=== PATIENT | male | born 1965 | race Caucasian/White ===

== ENCOUNTER 2018-07-02 10:14 | Emergency (ER) | payer SELFPAY ==
[~2018-07-02] VITALS: Ht 172.7 cm; Wt 63.5 kg
[2018-07-02] MEDS ORDERED: OLAN20TA3 PO (11:10)
[2018-07-02] MEDS ORDERED: LISI10TA2 PO (11:10)
[2018-07-02] MEDS ORDERED: OLAN10TA3 PO (11:10)
[2018-07-02] MEDS ORDERED: AMLO10TA4 PO (11:10)
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
[2018-07-02 11:18] LABS: BASOPHILS % (AUTO) 0 % (0-10); EOSINOPHILS % (AUTO) 0 % (0-10); HEMATOCRIT 43 % (40-54); LYMPHOCYTES # (AUTO) 1.1 X 10^3 (1.0-4.0); LYMPHOCYTES % (AUTO) 17 % (12-44); MEAN CORPUSCULAR HEMOGLOBIN 31 PG (25-34); MEAN CORPUSCULAR HGB CONC 35 G/DL (32-36); MEAN CORPUSCULAR VOLUME 88 FL (80-99); MEAN PLATELET VOLUME 9.6 FL (7.4-10.4); MONOCYTES # (AUTO) 0.7 X 10^3 (0.0-1.0); MONOCYTES % (AUTO) 10 % (0-12); NEUTROPHILS # (AUTO) 4.9 X 10^3 (1.8-7.8); NEUTROPHILS % (AUTO) 73 % (42-75); PLATELET COUNT 265 10^3/uL (130-400); RED BLOOD COUNT 4.92 10^6/uL (4.35-5.85); RED CELL DISTRIBUTION WIDTH 13.2 % (10.0-14.5); WHITE BLOOD COUNT 6.7 10^3/uL (4.3-11.0)
[2018-07-02 11:25] LABS: BILIRUBIN,URINE NEGATIVE (NEGATIVE); CLARITY,URINE CLEAR; COLOR,URINE YELLOW; GLUCOSE, URINE (UA) NEGATIVE (NEGATIVE); KETONES,URINE NEGATIVE (NEGATIVE); LEUKOCYTE ESTERASE ,URINE 1+ (NEGATIVE); NITRITE,URINE NEGATIVE (NEGATIVE); PH,URINE 7 (5-9); PROTEIN,URINE 1+ (NEGATIVE); UROBILINOGEN,URINE 1 MG/DL (NORMAL)
[2018-07-02 11:39] LABS: ALANINE AMINOTRANSFERASE 12 U/L (0-55); ALBUMIN 3.7 GM/DL (3.2-4.5); ALKALINE PHOSPHATASE 65 U/L (40-136); BILIRUBIN,TOTAL 0.8 MG/DL (0.1-1.0); BUN/CREATININE RATIO 23; CALCIUM 9.2 MG/DL (8.5-10.1); CARBON DIOXIDE 25 MMOL/L (21-32); CHLORIDE 102 MMOL/L (98-107); CREATININE SERUM 0.77 MG/DL (0.60-1.30); GFR ESTIMATED > 60; GLUCOSE 96 MG/DL (70-105); POTASSIUM 4.2 MMOL/L (3.6-5.0); SALICYLATE < 5.0 MG/DL (5.0-20.0); SODIUM 135 MMOL/L (135-145)
[2018-07-02 11:42] LABS: ACETAMINOPHEN < 10 UG/ML (10-30)
[2018-07-02 11:43] LABS: BACTERIA,URINE LARGE /HPF
[2018-07-02 11:51] LABS: CANNABINOID SCREEN, URINE POSITIVE (NEGATIVE)
[2018-07-02 11:52] LABS: COCAINE SCREEN URINE NEGATIVE (NEGATIVE)
[2018-07-02 11:53] LABS: AMPHETAMINE SCREEN, URINE POSITIVE (NEGATIVE); METHADONE STAT NEGATIVE (NEGATIVE); TRICYCLIC ANTIDEPRESSANTS SCRE POSITIVE (NEGATIVE)
[2018-07-02 11:54] LABS: BARBITURATE SCREEN URINE NEGATIVE (NEGATIVE); BENZODIAZEPINES SCREEN URINE NEGATIVE (NEGATIVE); METHAMPHETAMINE SCREEN URINE S NEGATIVE (NEGATIVE); OPIATE SCREEN URINE NEGATIVE (NEGATIVE); OXYCODONE STAT NEGATIVE (NEGATIVE)
[2018-07-02 11:55] LABS: PROPOXYPHENE STAT NEGATIVE (NEGATIVE)
[2018-07-02 15:51] VITALS: BP 115/74
== END 2018-07-02 15:44 | disposition short-term general hospital (02) ==
LOC: ER 10:16
DX: R45.851 Suicidal ideations (principal); F23 Brief psychotic disorder; F15.10 Other stimulant abuse, uncomplicated; F41.9 Anxiety disorder, unspecified; I10 Essential (primary) hypertension
CPT/HCPCS: 36415; 80053; 80306; 80320; 80329; 81000; 84443; 85025; 93005

== ENCOUNTER 2021-02-24 09:08 | Emergency (ER) | payer MEDICARE, MEDICAID ==
[~2021-02-24] VITALS: Ht 177 cm; Wt 68.0 kg
[~2021-02-24 09:08] MED LIST: AMLO10TA4 PO; LISI10TA25 PO; OLAN10TA3 PO; OLAN20TA3 PO
[2021-02-24 10:44] LABS: BASOPHILS % (AUTO) 0 % (0-10); EOSINOPHILS # (AUTO) 0.3 10^3/uL (0.0-0.3); EOSINOPHILS % (AUTO) 4 % (0-10); HEMATOCRIT 40 % (40-54); HEMOGLOBIN 13.2 g/dL (13.3-17.7); LYMPHOCYTES # (AUTO) 1.8 10^3/uL (1.0-4.0); LYMPHOCYTES % (AUTO) 22 % (12-44); MEAN CORPUSCULAR HEMOGLOBIN 30 pg (25-34); MEAN CORPUSCULAR HGB CONC 33 g/dL (32-36); MEAN CORPUSCULAR VOLUME 91 fL (80-99); MEAN PLATELET VOLUME 9.6 fL (9.0-12.2); MONOCYTES # (AUTO) 1.3 10^3/uL (0.0-1.0); MONOCYTES % (AUTO) 16 % (0-12); NEUTROPHILS # (AUTO) 4.5 10^3/uL (1.8-7.8); NEUTROPHILS % (AUTO) 57 % (42-75); PLATELET COUNT 239 10^3/uL (130-400); WHITE BLOOD COUNT 7.9 10^3/uL (4.3-11.0)
[2021-02-24 11:07] LABS: ALANINE AMINOTRANSFERASE 12 U/L (0-55); ALBUMIN 3.8 GM/DL (3.2-4.5); ALKALINE PHOSPHATASE 71 U/L (40-136); BUN/CREATININE RATIO 24; CALCIUM 8.9 MG/DL (8.5-10.1); CARBON DIOXIDE 28 MMOL/L (21-32); CHLORIDE 100 MMOL/L (98-107); CREATININE SERUM 0.86 MG/DL (0.60-1.30); GFR ESTIMATED > 60; GLUCOSE 109 MG/DL (70-105); MAGNESIUM 1.9 MG/DL (1.6-2.4); POTASSIUM 3.3 MMOL/L (3.6-5.0); SODIUM 138 MMOL/L (135-145); TOTAL PROTEIN 6.4 GM/DL (6.4-8.2)
[2021-02-24 11:15] LABS: BILIRUBIN,URINE NEGATIVE (NEGATIVE); CLARITY,URINE CLEAR; COLOR,URINE YELLOW; GLUCOSE, URINE (UA) NEGATIVE (NEGATIVE); KETONES,URINE NEGATIVE (NEGATIVE); LEUKOCYTE ESTERASE ,URINE NEGATIVE (NEGATIVE); NITRITE,URINE NEGATIVE (NEGATIVE); PROTEIN,URINE TRACE (NEGATIVE)
[2021-02-24 11:29] LABS: TSH (THYROID ANALYZER) 1.71 UIU/ML (0.35-4.94)
[2021-02-24 11:30] LABS: AMPHETAMINE SCREEN, URINE POSITIVE (NEGATIVE); BARBITURATE SCREEN URINE NEGATIVE (NEGATIVE); BENZODIAZEPINES SCREEN URINE NEGATIVE (NEGATIVE); CANNABINOID SCREEN, URINE POSITIVE (NEGATIVE); COCAINE SCREEN URINE NEGATIVE (NEGATIVE); METHADONE STAT NEGATIVE (NEGATIVE); METHAMPHETAMINE SCREEN URINE S POSITIVE (NEGATIVE); OPIATE SCREEN URINE NEGATIVE (NEGATIVE); OXYCODONE STAT NEGATIVE (NEGATIVE); PROPOXYPHENE STAT NEGATIVE (NEGATIVE); TRICYCLIC ANTIDEPRESSANTS SCRE NEGATIVE (NEGATIVE)
[2021-02-24 11:32] LABS: BACTERIA,URINE TRACE /HPF; SQUAMOUS EPITHELIAL CELL,UR RARE /HPF; WBC,URINE RARE /HPF
[2021-02-24] MEDS ORDERED: KETOROLAC 30 MG/ML VIAL IVP ONE (12:00)
--- NOTE | 2021-02-24 12:38 | ED Psychosocial ---
General Chief Complaint: Psych/Social Disorder Stated Complaint: PSYCH EVAL Nursing Triage Note: ARRIVED TO ER [facility]. STATES HE IS HERE BECAUSE HE HAS NOWHERE TO GO AND WANTS OUT OF [place]. ALSO WANTS US TO HELP HIM INTO A DETENTION AND WAS TOLD BY A DR TO COME BACK HERE IF HE NEEDED HELP WITH THAT. Source: patient, old records Exam Limitations: no limitations History of Present Illness Date Seen by Provider: Feb 24, 2021 Time Seen by Provider: 10:27 Initial Comments This 56-year-old gentleman presents to the emergency room by private conveyance stating he would like to get out of his drug infested residence in the [facility] and into a fci or some other type of facility. He is a client of the [facility] and sees a provider named Nadia Nguyen. He also sees Dr. Soto in [place]. Last night he walked as far as [place] and then laid down on a concrete slab beneath the tree. Someone brought him food and gave him a ride to [place]. His only physical complaints are some generalized soreness from lying on a hard surface and left foot pain from walking a great distance. He reports having a comp field case manager named through the [facility]. He does have a documented history of substance abuse and schizophrenia. During his last ER visit here he was transferred to a psychiatric facility. He requests Toradol for his pain. Allergies and Home Medications Allergies Coded Allergies: baclofen (Verified Allergy, Unknown, 02/24/21) Patient Home Medication List Home Medication List Reviewed: Yes Review of Systems Constitutional: no symptoms reported EENTM: no symptoms reported Respiratory: no symptoms reported Cardiovascular: no symptoms reported Gastrointestinal: no symptoms reported Genitourinary: no symptoms reported Musculoskeletal: see HPI Skin: no symptoms reported Psychiatric/Neurological: See HPI Past Poqfpfm-Gflfcr-Yogwhf Hx Past Med/Social Hx: Reviewed Nursing Past Med/Soc Hx Patient Social History Alcohol Use: Occasionally Uses Number of Drinks Today: AA Alcohol Beverage of Choice: Beer Drug of Choice: METH, POTR Smoking Status: Current Everyday Smoker Recent Infectious Disease Expo: No Recent Hopitalizations: No Seasonal Allergies Seasonal Allergies: No Past Medical History Surgeries: No Respiratory: No Cardiac: Yes Hypertension Neurological: No Genitourinary: No Gastrointestinal: No Musculoskeletal: No Endocrine: No Cancer: No Psychosocial: Yes Schizophrenia Family Medical History No Pertinent Family Hx Physical Exam Vital Signs - First Documented 4/27/21 09:15 Temp 36.4 Pulse 93 Resp 16 B/P (MAP) 136/93 (107) Pulse Ox 97 O2 Delivery Room Air Capillary Refill : Less Than 3 Seconds Height, Weight, BMI Height: 5'8.00" Weight: 140lbs. oz. 63.639124rh; 21.00 BMI Method:Stated General Appearance: WD/WN, no apparent distress, thin HEENT: PERRL/EOMI, normal ENT inspection, other (Mucous membranes moist) Neck: normal inspection Respiratory: lungs clear, normal breath sounds, no respiratory distress Cardiovascular: regular rate, rhythm, no edema, no murmur Gastrointestinal: non tender, soft Extremities: normal inspection, other (Mild generalized tenderness over the distal left foot with no evidence of injury or inflammation on visual inspection) Neurologic/Psychiatric: signal maintainer II-XII nml as tested, no motor/sensory deficits, alert, normal mood/affect, oriented x 3, other (Somnolent but alert and oriented) Skin: normal color, warm/dry Progress/Results/Core Measures Results/Orders Lab Results Laboratory Tests Test 02/24/21 10:38 02/24/21 10:56 Range/Units White Blood Count 7.9 4.3-11.0 10^3/uL Red Blood Count 4.38 4.30-5.52 10^6/uL Hemoglobin 13.2 L 13.3-17.7 g/dL Hematocrit 40 40-54 % Mean Corpuscular Volume 91 80-99 fL Mean Corpuscular Hemoglobin 30 25-34 pg Mean Corpuscular Hemoglobin Concent 33 32-36 g/dL Red Cell Distribution Width 12.5 10.0-14.5 % Platelet Count 239 130-400 10^3/uL Mean Platelet Volume 9.6 9.0-12.2 fL Immature Granulocyte % (Auto) 0 % Neutrophils (%) (Auto) 57 42-75 % Lymphocytes (%) (Auto) 22 12-44 % Monocytes (%) (Auto) 16 H 0-12 % Eosinophils (%) (Auto) 4 0-10 % Basophils (%) (Auto) 0 0-10 % Neutrophils # (Auto) 4.5 1.8-7.8 10^3/uL Lymphocytes # (Auto) 1.8 1.0-4.0 10^3/uL Monocytes # (Auto) 1.3 H 0.0-1.0 10^3/uL Eosinophils # (Auto) 0.3 0.0-0.3 10^3/uL Basophils # (Auto) 0.0 0.0-0.1 10^3/uL Immature Granulocyte # (Auto) 0.0 0.0-0.1 10^3/uL Sodium Level 138 135-145 MMOL/L Potassium Level 3.3 L 3.6-5.0 MMOL/L Chloride Level 100 98-107 MMOL/L Carbon Dioxide Level 28 21-32 MMOL/L Anion Gap 10 5-14 MMOL/L Blood Urea Nitrogen 21 H 7-18 MG/DL Creatinine 0.86 0.60-1.30 MG/DL Estimat Glomerular Filtration Rate > 60 BUN/Creatinine Ratio 24 Glucose Level 109 H 70-105 MG/DL Calcium Level 8.9 8.5-10.1 MG/DL Corrected Calcium 9.1 8.5-10.1 MG/DL Magnesium Level 1.9 1.6-2.4 MG/DL Total Bilirubin 1.0 0.1-1.0 MG/DL Aspartate Amino Transf (AST/SGOT) 25 5-34 U/L Alanine Aminotransferase (ALT/SGPT) 12 0-55 U/L Alkaline Phosphatase 71 40-136 U/L C-Reactive Protein High Sensitivity 0.24 0.00-0.50 MG/DL Total Protein 6.4 6.4-8.2 GM/DL Albumin 3.8 3.2-4.5 GM/DL TSH [facility] Testing 1.71 0.35-4.94 UIU/ML Serum Alcohol < 10 <10 MG/DL Urine Color YELLOW Urine Clarity CLEAR Urine pH 6.0 5-9 Urine Specific [place] 1.025 H 1.016-1.022 Urine Protein TRACE H NEGATIVE Urine Glucose (UA) NEGATIVE NEGATIVE Urine Ketones NEGATIVE NEGATIVE Urine Nitrite NEGATIVE NEGATIVE Urine Bilirubin NEGATIVE NEGATIVE Urine Urobilinogen 4.0 < = 1.0 MG/DL Urine Leukocyte Esterase NEGATIVE NEGATIVE Urine RBC (Auto) NEGATIVE NEGATIVE Urine RBC NONE /HPF Urine WBC RARE /HPF Urine Squamous Epithelial Cells RARE /HPF Urine Crystals NONE /LPF Urine Bacteria TRACE /HPF Urine Casts PRESENT /LPF Urine Hyaline Casts 2-5 H /LPF Urine Mucus SMALL H /LPF Urine Culture Indicated NO Urine Opiates Screen NEGATIVE NEGATIVE Urine Oxycodone Screen NEGATIVE NEGATIVE Urine Methadone Screen NEGATIVE NEGATIVE Urine Propoxyphene Screen NEGATIVE NEGATIVE Urine Barbiturates Screen NEGATIVE NEGATIVE Ur Tricyclic Antidepressants Screen NEGATIVE NEGATIVE Urine Phencyclidine Screen NEGATIVE NEGATIVE Urine Amphetamines Screen POSITIVE H NEGATIVE Urine Methamphetamines Screen POSITIVE H NEGATIVE Urine Benzodiazepines Screen NEGATIVE NEGATIVE Urine Cocaine Screen NEGATIVE NEGATIVE Urine Cannabinoids Screen POSITIVE H NEGATIVE My Orders Orders - DEON SUAREZ MD Alcohol (02/24/21 10:27) Cbc With Automated Diff (02/24/21 10:27) Comprehensive Metabolic Panel (02/24/21 10:27) Hs C Reactive Protein (02/24/21 10:27) Drug Screen Stat (Urine) (02/24/21 10:27) Magnesium (02/24/21 10:27) Thyroid Analyzer (02/24/21 10:27) Ua Culture If Indicated (02/24/21 10:27) Ed Iv/Invasive Line Start (02/24/21 10:27) Ketorolac Injection (Toradol Injection) (02/24/21 12:00) Vital Signs/I&O Blood Pressure Mean: 107 Progress Progress Note #1: Time: 12:37 Progress Note Toradol was ordered for the pain. I have called the [facility] at [place] [facility]imena escoto and left a general voicemail message followed by a voicemail message to 's phone at 12:23. I will hold the patient a short time longer in hopes that I will receive a call back. Progress Note #2: Time: 13:22 Progress Note Never did hear back from the case management office despite leaving 2 messages. Patient is medically stable. Toradol was given for pain. Patient requested some phone numbers for local ministries. I am giving him phone numbers for [facility] through [facility] and [facility] through [facility]. Patient states he no longer wants to live in [place] or receive care there, but I explained to him that he needs to work through his current comp field case manager to address his desired social changes rather than the ER. Departure Impression Primary Impression: Polysubstance abuse Additional Impressions: Unsatisfactory living conditions Generalized pain Disposition: 01 HOME, SELF-CARE Condition: Stable Departure-Patient Inst. Referrals: KALIN SOTO MD (PCP/Family) Primary Care Physician Patient Instructions: Polysubstance Abuse Add. Discharge Instructions: You should follow-up with your comp field case manager through the [facility] as soon as possible. If you are seeking support for substance abuse in the [place] area you may contact [facility] at [facility] in [place] at [phone] or you may try [facility] at [facility] in [place] at [phone]. Drink plenty of clear liquids and eat a well-balanced diet. Avoid methamphetamines, marijuana, and other mind altering illicit substances as they are likely to worsen your mental health and interfere with your psychiatric medications. Call with questions or concerns. Return to the emergency room if you have worsening symptoms. All discharge instructions reviewed with patient and/or family. Voiced understanding. DEON SUAREZ MD Feb 24, 2021 12:38
[2021-02-24 13:59] VITALS: BP 123/78
== END 2021-02-24 13:59 | disposition home or self-care (01) ==
LOC: EDUNIT# 09:08 → ER 09:10
DX: F19.10 Other psychoactive substance abuse, uncomplicated (principal); R52 Pain, unspecified; I10 Essential (primary) hypertension; F17.200 Nicotine dependence, unspecified, uncomplicated; Z59.1 Inadequate housing; Z88.8 Allergy status to other drugs, medicaments and biological substances
CPT/HCPCS: 80053; 80306; 81000; 83735; 84443; 85025; 86141; 99284; G0480; 36415; 80320

== ENCOUNTER 2021-02-25 17:57 | Emergency (ER) | payer MEDICARE, MEDICAID ==
[~2021-02-25] VITALS: Ht 180.3 cm; Wt 65.9 kg
[2021-02-25 18:05] VITALS: BP 117/77
--- NOTE | 2021-02-25 18:41 | ED General ---
General Chief Complaint: General Problems/Pain Stated Complaint: PSYCH EVAL History of Present Illness Date Seen by Provider: Feb 25, 2021 Time Seen by Provider: 18:05 Initial Comments 56 year old male presents for "just don't feel good and I don't have anywhere to stay." He denies thoughts to harm himself or others. He was seen in this ED yesterday, full work up that was benign. He had a bilingual case manager in [facility] [place] but he is not wanting to return there. He was seen in the ED in 2018 and the physician left a good impression on him and giving him referral resources in town. Patient is open to attending [facility] tomorrow at 6:30 pm, he is just looking for a place to sleep until then. Timing/Duration: 12-24 Hours Severity: Mild Associated Systoms: Denies Symptoms Allergies and Home Medications Allergies Coded Allergies: baclofen (Verified Allergy, Unknown, 02/24/21) Patient Home Medication List Home Medication List Reviewed: Yes Review of Systems Review of Systems Constitutional: no symptoms reported, see HPI Psychiatric/Neurological: See HPI, Emotional Problems, Other (chronic meth use. ) All Other Systems Reviewed Negative Unless Noted: Yes Past Toaneyj-Rfpcwt-Zgdiae Hx Past Med/Social Hx: Reviewed Nursing Past Med/Soc Hx Patient Social History Alcohol Beverage of Choice: Beer Drug of Choice: METH, POTR Recent Hopitalizations: No Seasonal Allergies Seasonal Allergies: No Past Medical History Surgeries: No Respiratory: No Cardiac: Yes Hypertension Neurological: No Genitourinary: No Gastrointestinal: No Musculoskeletal: No Endocrine: No Cancer: No Psychosocial: Yes Schizophrenia Family Medical History No Pertinent Family Hx Physical Exam Vital Signs Vital Signs - First Documented 02/25/21 18:05 Temp 36.9 Pulse 87 Resp 18 B/P (MAP) 117/77 (90) Pulse Ox 96 Capillary Refill : Height, Weight, BMI Height: 5'8.00" Weight: 140lbs. oz. 63.037318ci; 21.00 BMI Method:Stated General Appearance: No Apparent Distress, WD/WN, Thin HEENT: PERRL/EOMI, TMs Normal, Normal ENT Inspection, Pharynx Normal Neck: Full Range of Motion, Normal Inspection, Non Tender, Supple Respiratory: Chest Non Tender, Lungs Clear, Normal Breath Sounds Cardiovascular: Regular Rate, Rhythm, No Edema, Normal Peripheral Pulses Gastrointestinal: Normal Bowel Sounds, Non Tender, Soft Extremity: Normal Capillary Refill, Normal Inspection, Normal Range of Motion, No Pedal Edema Neurologic/Psychiatric: Alert, Oriented x3, No Motor/Sensory Deficits, Normal Mood/Affect Skin: Normal Color, Warm/Dry Progress/Results/Core Measures Suspected Sepsis SIRS Temperature: Pulse: Respiratory Rate: Blood Pressure / Mean: Results/Orders Vital Signs/I&O 02/25/21 18:05 Temp 36.9 Pulse 87 Resp 18 B/P (MAP) 117/77 (90) Pulse Ox 96 Capillary Refill : Progress Note : Time: 18:05 Progress Note Patient seen and evaluated, discussed at length with him options for voluntary outpatient services in [facility]. Suggested establishing care at [facility] to have their social media marketer assist with placement in rehab. Discussed that we do not have a nursing home for him to stay at overnight in [place]. Patient requesting a taxi voucher to return to [place]. Stressed that we cannot give a voucher other than in the city limits. Voucher provided, instructions and return precautions reviewed. He is willing to attend [facility] on for their [facility] group, card and information provided. Departure Impression Primary Impression: Schizophrenia Qualified Codes: F20.9 - Schizophrenia, unspecified Additional Impression: Homelessness Disposition: 01 HOME, SELF-CARE Condition: Improved Departure-Patient Inst. Decision time for Depature: 18:40 [address]errals: [facility]/LEXIS JOHNSON MD (PCP) Primary Care Physician Patient Instructions: Schizophrenia (DC) Add. Discharge Instructions: Attend the [facility] and more at [facility], see the card provided it will be at 6:30 PM on . Consider being evaluated at [facility] for mental health and addiction services as well as patient advocacy. Return to the emergency department for new, acute healthcare problems. All discharge instructions reviewed with patient and/or family. Voiced understanding. DARIANA EDMONDSON Feb 25, 2021 18:41
== END 2021-02-25 18:45 | disposition home or self-care (01) ==
LOC: EDUNIT# 17:57 → ER 18:03
DX: F20.9 Schizophrenia, unspecified (principal); I10 Essential (primary) hypertension; Z59.0 Homelessness; Z88.8 Allergy status to other drugs, medicaments and biological substances
CPT/HCPCS: 99281